=== PATIENT | female | born 1945 | race Hispanic/Latino ===

== ENCOUNTER 2021-07-09 22:45 | Emergency (ER) | payer MEDICARE ==
[~2021-07-09] VITALS: Ht 162.6 cm; Wt 81.6 kg
[2021-07-09] MEDS ORDERED: KETOROLAC 30MG VIAL (30MG/ML) ONE (22:58)
[2021-07-09] MEDS ORDERED: FAMOTIDINE 20MG VIAL IV ONE ×2 (22:58→23:00)
[2021-07-09] MEDS ORDERED: ONDANSETRON 4MG INJ ONE (22:58)
[2021-07-09] MEDS ORDERED: KETOROLAC 30MG VIAL (30MG/ML) IV ONE (23:00)
[2021-07-09] MEDS ORDERED: ONDANSETRON 4MG INJ IVP ONE (23:00)
[2021-07-09 23:19] LABS: BASOPHILS % (AUTO) 0.5 % (0.0-5.0); EOSINOPHILS % (AUTO) 4.1 % (0.0-8.0); LYMPHOCYTES % (AUTO) 39.9 % (21.0-51.0); MEAN CORPUSCULAR HEMOGLOBIN 29.1 pg (27.0-33.0); MEAN CORPUSCULAR HGB CONC 33.3 g/dL (32.0-36.0); MEAN CORPUSCULAR VOLUME 87.3 fL (79-99); MONOCYTES % (AUTO) 8.4 % (3.0-13.0); NEUTROPHILS % (AUTO) 46.9 % (40.0-77.0); PLATELET COUNT (AUTO) 178 K/uL (130-400); RED BLOOD CELL COUNT(AUTO) 4.81 MIL/uL (4.00-5.50); RED CELL DISTRIBUTION WIDTH 11.9 % (11.0-15.5); WHITE BLOOD COUNT (AUTO) 6.6 K/uL (4.8-10.8)
[2021-07-09 23:20] LABS: APPEARANCE,URINE Cloudy (CLEAR); BILIRUBIN,URINE Negative (NEGATIVE); COLOR,URINE Yellow (YELLOW); GLUCOSE, URINE (UA) Negative (NEGATIVE); KETONES,URINE Negative (NEGATIVE); LEUKOCYTE ESTERASE ,URINE Trace (NEGATIVE); NITRATE,URINE Negative (NEGATIVE); OCCULT BLOOD,URINE Negative (NEGATIVE); PH,URINE 5.5 (5.0-8.0); PROTEIN,URINE Negative (NEGATIVE)
[2021-07-09 23:30] LABS: CREATININE 0.6 mg/dL (0.5-1.5); POTASSIUM 4.1 mmol/L (3.5-5.1)
[2021-07-09 23:35] LABS: ALBUMIN 3.8 g/dL (3.5-5.0); B-TYPE NATRIURETIC PEPTIDE 56 pg/mL (0-100); BILIRUBIN,TOTAL 0.3 mg/dL (0.2-1.0)
[2021-07-09 23:38] LABS: RBC,URINE None Seen /HPF (0-1)
[2021-07-09 23:39] LABS: BACTERIA,URINE Rare /HPF (None Seen); WBC,URINE None Seen /HPF (0-1)
[2021-07-10] MEDS ORDERED: IBUP-1493 PO (00:02)
[2021-07-10] MEDS ORDERED: LISI10TA24 PO (00:06)
[2021-07-10 00:09] VITALS: BP 160/68
== END 2021-07-10 00:20 | disposition home or self-care (01) ==
LOC: EDH 22:45
DX: I10 Essential (primary) hypertension (principal); R51.9 Headache, unspecified; R42 Dizziness and giddiness
CPT/HCPCS: 36415; 70450; 71045; 80053; 81001; 83880; 84484; 85025; 93005; 96374; 96375; 99285; J1885; J2405; J3490